=== PATIENT | male | born 1995 | race Caucasian/White ===

== ENCOUNTER 2024-02-06 12:39 | Inpatient (IN) | payer OTHER ==
[2024-02-06 13:21] VITALS: BMI 21.4
[2024-02-06] MEDS ORDERED: guaiFENesin 600 MG TABLET.ER (FP) PO PRN (14:13)
[2024-02-06] MEDS ORDERED: NALOXONE (NARCAN) HCL 4 MG/0.1 ML SPRAY NS PRN (14:13)
[2024-02-06] MEDS ORDERED: ACETAMINOPHEN 325 MG TABLET (FP) PO PRN (14:13)
[2024-02-06] MEDS ORDERED: MAGNESIUM HYDROX 2400MG/30ML ORAL SUSPENSION 30 ML CUP PO PRN (14:13)
[2024-02-06] MEDS ORDERED: POLYETHYLENE GLYCOL (HEALTHYLAX) 3350 17 GM PACKET PO PRN (14:13)
[2024-02-06] MEDS ORDERED: P-EPHED 60MG/TRIPROLIDI 2.5MG TABLET PO PRN (14:13)
[2024-02-06] MEDS ORDERED: DICYCLOMINE HCL 10 MG CAPSULE PO PRN (14:13)
[2024-02-06] MEDS ORDERED: BENZOCAINE/MENTHOL (CHLORASEPTIC ) LOZENGE MM PRN (14:13)
[2024-02-06] MEDS ORDERED: BISMUTH SUBSALICYLATE 262 MG/15 ML BTL PO PRN (14:13)
[2024-02-06] MEDS ORDERED: NICOTINE POLACRILEX 2 MG LOZENGE BC PRN (14:13)
[2024-02-06] MEDS ORDERED: NALOXONE HCL 0.4 MG/ML VIAL IM PRN (14:13)
[2024-02-06] MEDS ORDERED: IBUPROFEN 400 MG TABLET (FP) PO PRN (14:13)
[2024-02-06] MEDS ORDERED: MAG HYDROX/AL HYDROX/SIMETH 30 ML UNIT-DOSE CUP PO PRN (14:13)
[2024-02-06] MEDS ORDERED: BENZONATATE 200 MG CAPSULE PO PRN (14:13)
[2024-02-06] MEDS ORDERED: LOPERAMIDE HCL 2 MG CAPSULE PO PRN (14:13)
[2024-02-06] MEDS ORDERED: ONDANSETRON *ODT* 4 MG TABLET SL PRN (14:13)
[2024-02-06] MEDS: diazePAM 5 MG TABLET PO SCH (17:29)
[2024-02-06] MEDS: MELATONIN 5 MG TABLETS PO SCH (22:08)
[2024-02-06] MEDS: THIAMINE 100 MG TABLET PO SCH (22:08)
[2024-02-07] MEDS: METHOCARBAMOL 500 MG TABLET PO PRN (06:01)
[2024-02-07] MEDS: IBUPROFEN 600 MG TABLET (FP) PO PRN (06:01)
[2024-02-07] MEDS: methaDONE HCL 40 MG DISPERSABLE TABLET PO SCH (09:43)
[2024-02-07] MEDS: PRENATAL VITAMINS W/ FOLIC ACID TABLET (FP) PO SCH (09:43)
[2024-02-07] MEDS: NICOTINE POLACRILEX 2 MG GUM BUC PRN (09:44)
[2024-02-07] MEDS: BACITRACIN 0.9 GM PACKET TP SCH (10:54)
[2024-02-07 12:17] LABS: POTASSIUM 4.4 mmol/L (3.5-5.1)
[2024-02-07 12:20] LABS: CALCIUM 8.7 mg/dL (8.5-10.1)
[2024-02-07 12:20] LABS: HEMATOCRIT 38.2 % (35.4-49); HEMOGLOBIN 12.8 GM/dL (11.7-16.9); MCH 29.5 pg (25.7-33.7); MCHC 33.5 g/dl (32.0-35.9); MEAN CELL VOLUME 88.2 fl (80-96); MEAN PLT VOLUME 7.8 fl (7.5-11.1); PLATELET COUNT 216 10^3/uL (134-434); RBC 4.34 M/mm3 (4.00-5.60); RDW 14.5 % (11.9-15.9); WHITE BLOOD COUNT 6.7 K/mm3 (4.0-10.0)
[2024-02-07 12:23] LABS: CREATININE 0.6 mg/dL (0.55-1.3)
[2024-02-07 12:25] LABS: BILIRUBIN,TOTAL 0.8 mg/dL (0.2-1); TOT PROT 5.8 g/dl (6.4-8.2)
[2024-02-07 13:14] LABS: HIV INTERPRETATION NEGATIVE (NEGATIVE)
[2024-02-08] MEDS: diazePAM 5 MG TABLET PO SCH (05:35)
[2024-02-08] MEDS: diazePAM 5 MG TABLET PO PRN (18:28)
[2024-02-09] MEDS: diazePAM 5 MG TABLET PO SCH (05:29)
[2024-02-10] MEDS: diazePAM 5 MG TABLET PO ONE (05:16)
[2024-02-10 06:03] VITALS: RESP 18
[2024-02-10 09:11] VITALS: BP 100/63; PULSE 67; TEMP 97.5
== END 2024-02-10 09:01 | disposition other institution (70) | DRG 773 ==
LOC: YASAS 12:39 → Y3N 15:13
PROVIDERS: ADMIT Allergy & Immunology; ATTEND Surgery
PROC: HZ2ZZZZ Detoxification Services for Substance Abuse Treatment (ICD-10-PCS; principal; 2024-02-06)
DX: F13.230 Sedative, hypnotic or anxiolytic dependence with withdrawal, uncomplicated (principal); F11.20 Opioid dependence, uncomplicated; F14.20 Cocaine dependence, uncomplicated; F12.20 Cannabis dependence, uncomplicated; F17.210 Nicotine dependence, cigarettes, uncomplicated; F41.8 Other specified anxiety disorders; Z86.59 Personal history of other mental and behavioral disorders; Z59.02 Unsheltered homelessness
CPT/HCPCS: 36415; 71045-TC-FY; 80053; 80305; 85027; 86780; 86803; 87389; 93005; 93010

== ENCOUNTER 2024-10-29 17:19 | Inpatient (IN) | payer OTHER ==
[2024-10-29 18:14] VITALS: BMI 33.6
[2024-10-29] MEDS ORDERED: BENZONATATE 200 MG CAPSULE PO PRN (18:48)
[2024-10-29] MEDS ORDERED: BENZOCAINE/MENTHOL (CHLORASEPTIC ) LOZENGE MM PRN (18:48)
[2024-10-29] MEDS ORDERED: DICYCLOMINE HCL 10 MG CAPSULE PO PRN (18:48)
[2024-10-29] MEDS ORDERED: MAGNESIUM HYDROX 2400MG/30ML ORAL SUSPENSION 30 ML CUP PO PRN (18:48)
[2024-10-29] MEDS ORDERED: MAG HYDROX/AL HYDROX/SIMETH 30 ML UNIT-DOSE CUP PO PRN (18:48)
[2024-10-29] MEDS ORDERED: ACETAMINOPHEN 325 MG TABLET (FP) PO PRN (18:48)
[2024-10-29] MEDS ORDERED: BISMUTH SUBSALICYLATE 524 MG/30 ML PO PRN (18:48)
[2024-10-29] MEDS ORDERED: POLYETHYLENE GLYCOL (HEALTHYLAX) 3350 17 GM PACKET PO PRN (18:48)
[2024-10-29] MEDS ORDERED: NICOTINE POLACRILEX 2 MG LOZENGE BC PRN (18:48)
[2024-10-29] MEDS ORDERED: NALOXONE (NARCAN) HCL 4 MG/0.1 ML SPRAY NS PRN (18:48)
[2024-10-29] MEDS ORDERED: guaiFENesin 600 MG TABLET.ER (FP) PO PRN (18:48)
[2024-10-29] MEDS ORDERED: ONDANSETRON *ODT* 4 MG TABLET SL PRN (18:48)
[2024-10-29] MEDS ORDERED: IBUPROFEN 400 MG TABLET (FP) PO PRN (18:48)
[2024-10-29] MEDS ORDERED: diazePAM 5 MG TABLET ONE (20:26)
[2024-10-29] MEDS: diazePAM 5 MG TABLET PO ONE (20:27)
[2024-10-29] MEDS: levETIRAcetam 500 MG TABLET (FP) PO SCH (23:11)
[2024-10-29] MEDS: THIAMINE 100 MG TABLET PO SCH (23:11)
[2024-10-29] MEDS: MELATONIN 5 MG TABLETS PO SCH (23:20)
[2024-10-29] MEDS: diazePAM 5 MG TABLET PO SCH (23:25)
[2024-10-30] MEDS: NICOTINE POLACRILEX 2 MG GUM BUC PRN (06:01)
[2024-10-30] MEDS ORDERED: methaDONE HCL 10 MG TABLET PO SCH (09:00)
[2024-10-30] MEDS: PRENATAL VITAMINS W/ FOLIC ACID TABLET (FP) PO SCH (09:19)
[2024-10-30] MEDS: METHOCARBAMOL 500 MG TABLET PO PRN (09:28)
[2024-10-30] MEDS: IBUPROFEN 600 MG TABLET (FP) PO PRN (09:29)
[2024-10-30] MEDS: GABAPENTIN 400 MG CAPSULE PO SCH (14:08)
[2024-10-30 15:03] LABS: HEMATOCRIT 38.9 % (40.1-51.0); HEMOGLOBIN 12.4 g/dL (13.7-17.5); MCHC 31.9 g/dl (32.3-36.5); MEAN CELL VOLUME 91.3 fl (79.0-92.2); MEAN PLT VOLUME 10.9 fl (9.4-12.4); PLATELET COUNT 226 x10^3/uL (163-337); RDW 13.2 % (11.9-15.3)
[2024-10-30 15:13] LABS: CHLORIDE 104 mmol/L (98-107); POTASSIUM 3.6 mmol/L (3.5-5.1); SODIUM 140 mmol/L (136-145)
[2024-10-30 15:35] LABS: ALBUMIN 3.2 g/dl (3.4-5.0); ANION GAP 8 mmol/L (4-13); BLOOD UREA NITROGEN 18.3 mg/dL (7-18); CALCIUM 8.8 mg/dL (8.5-10.1); CO2 28 mmol/L (21-32); GLUCOSE,RANDOM 122 mg/dL (74-106)
[2024-10-30 15:38] LABS: CREATININE 0.8 mg/dL (0.55-1.3); SGOT/AST 45 U/L (15-37); SGPT/ALT 39 U/L (13-61)
[2024-10-30 15:39] LABS: BILIRUBIN,TOTAL 0.4 mg/dL (0.2-1)
[2024-10-30 15:41] LABS: ALK PHOS 103 U/L (45-117); TOT PROT 5.8 g/dl (6.4-8.2)
[2024-10-30] MEDS: MIRTAZAPINE 15 MG TABLET (FP) PO SCH (22:39)
[2024-10-31] MEDS: diazePAM 5 MG TABLET PO SCH (06:26)
[2024-10-31] MEDS: diazePAM 5 MG TABLET PO PRN (10:08)
[2024-10-31] MEDS: LOPERAMIDE HCL 2 MG CAPSULE PO PRN (10:08)
[2024-11-01] MEDS: diazePAM 5 MG TABLET PO SCH (05:54)
[2024-11-01 21:22] VITALS: RESP 17
[2024-11-02] MEDS: diazePAM 5 MG TABLET PO ONE (06:04)
[2024-11-02 06:39] VITALS: BP 124/78; PULSE 59; TEMP 96.6
== END 2024-11-02 08:50 | disposition home or self-care (01) | DRG 773 ==
LOC: YASAS 17:19 → Y6N 20:32
PROVIDERS: ADMIT Allergy & Immunology; ATTEND Allergy & Immunology
PROC: HZ2ZZZZ Detoxification Services for Substance Abuse Treatment (ICD-10-PCS; principal; 2024-10-29)
DX: F13.230 Sedative, hypnotic or anxiolytic dependence with withdrawal, uncomplicated (principal); F11.20 Opioid dependence, uncomplicated; F14.20 Cocaine dependence, uncomplicated; F12.20 Cannabis dependence, uncomplicated; F17.210 Nicotine dependence, cigarettes, uncomplicated; F41.8 Other specified anxiety disorders; F43.10 Post-traumatic stress disorder, unspecified; M54.50 Low back pain, unspecified; G89.29 Other chronic pain; Z59.02 Unsheltered homelessness
CPT/HCPCS: 36415; 80053; 80305; 80307; 85027; 86780; 93005; 93010